=== PATIENT | male | born 1985 | race Caucasian/White ===

== ENCOUNTER → 2016-12-06 | Outpatient (CLI) | payer OTHER ==
--- NOTE | 2016-12-06 16:01 | KCIC ---
Left lower extremity venous Doppler ultrasound History: Left lower extremity injury, pain, swelling. Hit self with ax. Anterior larry lump. Comparison: None. Procedure: Color flow Doppler, Doppler spectral analysis, and 2D images are obtained with and without compression in the area of the common femoral vein, superficial femoral vein - femoral vein junction, main femoral vein (superficial femoral vein) and popliteal vein. Veins of the proximal calf are also imaged. Findings: There is normal color flow, augmentation, and compressibility of all visualized vein segments. No evidence of deep venous thrombus is present. In the area of injury in the subcutaneous anterior proximal calf there is a hypoechoic collection that is probably complex fluid measuring 4.3 x 0.6 x 3.4 cm. IMPRESSION: No evidence of left lower extremity deep venous thrombosis. Electronically signed by: Gasper Montes De Oca MD (12/06/2016 3:57 PM) [id number]
== END | disposition home or self-care (01) ==
LOC: KCIC US 14:04
PROVIDERS: ATTEND Family Medicine
DX: M79.662 Pain in left lower leg (principal); M79.89 Other specified soft tissue disorders
CPT/HCPCS: 93971